=== PATIENT | male | born 2000 | race Caucasian/White ===

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

== ENCOUNTER 2018-08-16 22:35 | Emergency (ER) | payer OTHER ==
--- NOTE | 2018-08-16 22:48 | EDPHY ---
H & P Stated Complaint: HIT W/ ELBOW BETWEEN EYES PLAYING SOCCER, DIZZY Time Seen by Provider: 08/16/18 22:48 HPI/ROS: HPI CHIEF COMPLAINT: Head trauma. Vomiting. HISTORY OF PRESENT ILLNESS: This patient is a 17-year-old male, he presents emergency room after states he was struck in the head while playing soccer. He states he was elbowed in the forehead. Positive LOC vomited twice. Complains of a frontal headache. He is unsure exactly the entire event. He cannot remember. He has had a concussion in the past. He called his mother who lives in [facility] and was referred to the emergency room. He states that he vomited 2 times. He does not recall the events. Positive LOC. Complains of forehead frontal headache. He is unsure if he fell backwards and struck his head as well. Past Medical History: History of concussion. Past Surgical History: Denies recent surgical history Social History: Denies drug use alcohol tobacco. Family History: Noncontributory ROS REVIEW OF SYSTEMS: 10 Systems were reviewed and negative with the exception of the elements mentioned in the history of present illness. Exam Constitutional triage nursing summary reviewed, vital signs reviewed, awake/ alert. Eyes normal conjunctivae and sclera, EOMI, PERRLA. HENT head and neck atraumatic on exam. normal inspection, atraumatic, moist mucus membranes, no epistaxis, neck supple/ no meningismus, no raccoon eyes. Respiratory clear to auscultation bilaterally, normal breath sounds, no respiratory distress, no wheezing. Cardiovascular rate normal, regular rhythm, no murmur, no edema, distal pulses normal. Gastrointestinal soft, non-tender, no rebound, no guarding, normal bowel sounds, no distension, no pulsatile mass. Genitourinary no CVA tenderness. Musculoskeletal no midline vertebral tenderness, full range of motion, no calf swelling, no tenderness of extremities, no meningismus, good pulses, neurovascularly intact. Skin pink, warm, & dry, no rash, skin atraumatic. Neurologic awake, alert and oriented x 3, AAOx3, moves all 4 extremities equally, motor intact, sensory intact, CN II-XII intact, normal cerebellar, normal vision, normal speech. Psychiatric normal mood/affect. Heme/Lymph/Immune no lymphadenopathy. Differential Diagnosis: Includes but is not limited to in a particular order concussion, closed head injury, intracranial bleed, skull fracture Medical Decision Making: Plan for this patient Tylenol for pain control, Zofran for nausea, his neurological exam is unremarkable however he does have some concerning features in the setting that he vomited 2 times. Had a positive LOC. Does not recall the events. Clinically I do believe he has a concussion. However I did recommend he has a CT scan of his head to make sure he does the not have a intracranial bleed. He is deciding if he would like this. Re-evaluation: Patient consents for CT scan head without contrast. Reason for CT scan head without contrast, trauma, vomiting x2, positive LOC. CT scan head without contrast was negative for acute bleed, subdural, epidural, traumatic subarachnoid. Called to me by Dr. Martinez. 12:09 a.m. Patient re-evaluated resting comfortably in no acute distress. States he feels much better after Tylenol and Zofran. He is requesting be discharged home. On re-examination his neurological exam is unremarkable. He denies any chest pain or shortness of breath, denies any further headache or vomiting. Requesting discharge. His CT scan was unremarkable. No evidence of acute trauma. Source: Patient - Personal History Current Tetanus Diphtheria and Acellular Pertussis (TDAP): Yes - Medical/Surgical History Hx Asthma: No Hx Chronic Respiratory Disease: No Hx Diabetes: No Hx Cardiac Disease: No Hx Renal Disease: No Hx Cirrhosis: No Hx Alcoholism: No Hx HIV/AIDS: No Hx Splenectomy or Spleen Trauma: No Other PMH: T&A. arrhythmias. JAW LOCK. pvc's - Social History Smoking Status: Current some day smoker Constitutional: Initial Vital Signs Temperature (C) 36.8 C 08/16/18 22:38 Heart Rate 108 H 08/16/18 22:38 Respiratory Rate 16 08/16/18 22:38 Blood Pressure 123/92 H 08/16/18 22:38 O2 Sat (%) 94 08/16/18 22:38 O2 Delivery Mode Room Air Allergies/Adverse Reactions: No Known Allergies Allergy (Unverified 12/13/17 23:47) Home Medications: Medication Instructions Recorded NK [No Known Home Meds] 08/16/18 Medical Decision Making - Diagnostics Imaging Results: Imaging Impressions Head CT 08/16/18 22:52 Impression: Negative. No fracture or acute intracranial hemorrhage. Findings discussed with Emergency Department physician, Daryn Seirra MD at 08/16/2018 23:14. - Data Points Medications Given: Discontinued Medications Acetaminophen (Tylenol) 1,000 mg PO EDNOW ONE Stop: 08/16/18 22:53 Last Admin: 08/16/18 23:10 Dose: 1,000 mg Ondansetron HCl (Zofran Odt) 4 mg PO EDNOW ONE Stop: 08/16/18 22:53 Last Admin: 08/16/18 22:56 Dose: 4 mg Departure - Departure Disposition: Home, Routine, Self-Care Clinical Impression: Concussion Qualifiers: Encounter type: initial encounter Loss of consciousness presence/duration: with LOC of 30 min or less Qualified Code(s): S06.0X1A - Concussion with loss of consciousness of 30 minutes or less, initial encounter Head injury Qualifiers: Encounter type: initial encounter Qualified Code(s): S09.90XA - Unspecified injury of head, initial encounter Condition: Good Instructions: Concussion (ED), Post Concussion Syndrome (ED) Additional Instructions: 1. I would rest over the next 2-3 days. No vigorous activity. 2. Return to the emergency room if you have worsening headache, vomiting, not doing well 3. Follow up with the concussion specialist Referrals: NONE *PRIMARY CARE P,. [Primary Care Provider] - As per Instructions Bella Payne MD [Medical Doctor] - As per Instructions
[2018-08-16] MEDS ORDERED: ONDANSETRON DISINTEGRATING 4 MG TAB PO ONE (22:52)
[2018-08-16] MEDS ORDERED: ACETAMINOPHEN 500 MG TAB PO ONE (22:52)
[2018-08-17 00:14] VITALS: BP 116/73
== END 2018-08-17 00:14 | disposition home or self-care (01) ==
DX: S06.0X1A Concussion with loss of consciousness of 30 minutes or less, initial encounter (principal); W50.0XXA Accidental hit or strike by another person, initial encounter; Y93.66 Activity, soccer; Y92.322 Soccer field as the place of occurrence of the external cause